=== PATIENT | female | born 1980 | race Caucasian/White ===

== ENCOUNTER 2024-10-25 13:33 | Emergency (ER) | payer BC ==
[2024-10-25] MEDS ORDERED: Ondansetron PF 4 MG/2 ML Vial ONE (14:30)
[2024-10-25 14:41] LABS: #Basophils 0.03 10x3/uL (0.0-0.2); #Eosinophils 0.27 10x3/uL (0.0-0.5); #Monocytes 0.45 10x3/uL (0.0-1.1); #Neutrophils 5.67 10x3/uL (1.5-8.4); %Basophils 0.4 % (0.0-2.0); %Eosinophils 3.3 % (0.0-6.0); %Lymphocytes 22.3 % (18.0-47.0); %Monocytes 5.4 % (0.0-10.0); %Neutrophils 68.2 % (40.0-75.0); Hematocrit 40.2 % (34.9-44.5); Hemoglobin 13.5 g/dL (12.0-15.5); Mean Corpuscular Hemoglobin 31.1 pg (27.0-33.0); Mean Corpuscular Volume 92.6 fL (81.6-98.3); Platelet Count 327 10x3/uL (150-450); Red Blood Cell (RBC) Count 4.34 10x6/uL (3.90-5.03); White Blood Cell (WBC) Count 8.30 10x3/uL (3.5-10.5)
[2024-10-25 14:53] LABS: BHCG - Serum Negative (NEGATIVE); Pregs Control Background? CLEAR/WHITE (CLR/WHITE); Pregs Control Bar Appear? YES (CONTROL BAR)
[2024-10-25 15:02] LABS: ALT (SGPT) 11 U/L (Less than 34); AST (SGOT) 17 U/L (11-34); Albumin 4.1 g/dL (3.1-4.5); Alkaline Phosphatase 73 U/L (40-110); Anion Gap 13 mmol/L (10-20); BUN (Urea Nitrogen) 11 mg/dL (7.0-18.7); Bilirubin, Total 0.5 mg/dL (0.3-1.2); Calc. Creatinine Clearance 0 mL/min (70-130); Calcium 9.1 mg/dL (7.8-10.44); Carbon Dioxide 25 mmol/L (22-29); Chloride 107 mmol/L (98-107); Globulin 2.6 g/dL (2.4-3.5); Glucose 98 mg/dL (70-105); Magnesium 1.9 mg/dL (1.6-2.6); Potassium 3.8 mmol/L (3.5-5.1); Sodium 141 mmol/L (136-145)
[2024-10-25 15:08] LABS: Troponin I Less than 0.010 ng/mL (< 0.028)
[2024-10-25] MEDS ORDERED: Ketorolac Tromethamine 30 MG (1 mL) VIAL ONE (16:30)
[2024-10-25 16:46] LABS: Glucose, Urine (Dipstick) Normal (Negative); Leukocyte Negative (Negative); Protein, Urine (Dipstick) Negative (Neg-Trace); Specific Gravity, Urine 1.015 (1.005-1.030)
[2024-10-25 17:20] LABS: RBC/HPF 0-3 HPF (0-3)
[2024-10-25 17:21] LABS: Bacteria/HPF 2+ HPF (None Seen); CAUTI Indications for Culture Pelvic or flank pain; Mucous/LPF 2+ LPF (<2+); WBC/HPF 0-3 HPF (0-3)
[2024-10-25 17:22] LABS: Urine Culture Reflex No No
== END 2024-10-25 17:05 | disposition home or self-care (01) ==
LOC: CSHERS 13:33
DX: M54.50 Low back pain, unspecified (principal); M50.30 Other cervical disc degeneration, unspecified cervical region; R20.2 Paresthesia of skin
CPT/HCPCS: 70450; 71045; 72125; 74176; 80053; 81001; 83735; 84484; 84703; 85025; 93005; 96374; 96375; J1885; J2270; J2405

== ENCOUNTER 2024-11-24 15:40 | Emergency (ER) | payer BC, SELFPAY ==
[2024-11-24] MEDS ORDERED: Acetaminophen 500 MG TAB ONE (17:09)
[2024-11-24] MEDS ORDERED: Ketorolac Tromethamine 30 MG (1 mL) VIAL ONE (17:09)
== END 2024-11-24 19:05 | disposition home or self-care (01) ==
LOC: CSHERS 15:40
DX: R51.9 Headache, unspecified (principal)
CPT/HCPCS: 96372; 99283; J1885